=== PATIENT | male | born 1980 | race Caucasian/White ===

== ENCOUNTER → 2023-12-22 12:41 | Outpatient (REF) | payer OTHER, SELFPAY | LOC: REG 12:41 | PROVIDERS: ATTENDING PHYSICIAN Physician Assistant; FAMILY PHYSICIAN Family Medicine | DX: J22 Unspecified acute lower respiratory infection (principal) | CPT/HCPCS: 71046 ==

== ENCOUNTER → 2024-12-20 09:07 | Outpatient (REF) | payer BC, SELFPAY | LOC: RAD 09:07 | PROVIDERS: ATTENDING PHYSICIAN Family Medicine | DX: R52 Pain, unspecified (principal); E07.9 Disorder of thyroid, unspecified; Z12.5 Encounter for screening for malignant neoplasm of prostate | CPT/HCPCS: 73502; 76882 ==